=== PATIENT | female | born 1990 | race Two or more races ===

== ENCOUNTER 2020-06-19 08:49 | Inpatient (IN) | payer OTHER ==
[~2020-06-19] VITALS: Ht 167.6 cm; Wt 55.3 kg
[~2020-06-19 08:49] MED LIST: INTEGRA F; ORTHO TRI-7 DAYSX1 PO
[2020-06-19] MEDS ORDERED: CRYSELLE-28 TA1 EACH PO (09:33)
== END 2020-06-20 10:46 | disposition home or self-care (01) | DRG 743 ==
LOC: CIR.AMB 08:49 → EDSTATUS 08:49 → OB/GYN 08:51 → O/R 11:58 → OB/GYN 11:58
PROVIDERS: ADMIT Obstetrics & Gynecology; ATTEND Obstetrics & Gynecology
PROC: 0UB00ZZ Excision of Right Ovary, Open Approach (ICD-10-PCS; principal; 2020-06-19 16:00)
DX: D27.0 Benign neoplasm of right ovary (principal)